=== PATIENT | female | born 1990 | race Hispanic/Latino ===

== ENCOUNTER 2017-05-25 17:19 | Emergency (ER) | payer SELFPAY ==
[2017-05-25 17:58] LABS: #Eosinphils 0.1 thou/uL (0.0-0.7); #Lymphocytes 1.5 thou/uL (1.20-3.40); #Monocytes 0.6 thou/uL (0.11-0.59); #Neutrophils 5.9 thou/uL (1.40-6.50); %Basophils 0.4 % (0.0-1.0); %Eosinophils 0.9 % (0.0-10.0); %Lymphocytes 18.8 % (21.0-51.0); %Monocytes 7.4 % (0.0-10.0); Mean Platelet Volume 9.2 fL (7.4-10.4); White Blood Cell (WBC) Count 8.1 thou/uL (4.8-10.8)
[2017-05-25 18:14] LABS: ALT (SGPT) 72 U/L (8-55); AST (SGOT) 32 U/L (5-34); Alkaline Phosphatase 80 U/L (40-150); Anion Gap 12 mmol/L (10-20); BUN (Urea Nitrogen) 5 mg/dL (7.0-18.7); Bilirubin, Total 0.4 mg/dL (0.2-1.2); Calc. Creatinine Clearance 0 mL/min (70-130); Calcium 8.6 mg/dL (7.8-10.44); Carbon Dioxide 21 mmol/L (22-29); Chloride 108 mmol/L (98-107); Estimated GFR-MDRD Greater than 90; Globulin 3.7 g/dL (2.4-3.5); Lipase 11 U/L (8-78); Protein, Total 7.6 g/dL (6.0-8.3)
[2017-05-25 19:04] LABS: Bilirubin Negative (Negative); Blood, Urine Large (Negative); Glucose, Urine (Dipstick) Negative (Negative); Ketone, Urine Negative (Negative); Nitrite Negative (Negative); Protein, Urine (Dipstick) 30 mg/dL (Neg-Trace); Urobilinogen 0.2 mg/dL (0.2-1.0)
[2017-05-25 19:06] LABS: Bacteria/HPF 4+ HPF (None Seen)
[2017-05-25 19:15] LABS: Hyaline Casts/LPF 0-3 HYALINE CAST LPF (0-3 Hyaline); Yeast-All Forms None Seen HPF (None Seen)
== END 2017-05-25 19:55 | disposition home or self-care (01) ==
LOC: ERS 17:19
DX: N39.0 Urinary tract infection, site not specified (principal); F41.9 Anxiety disorder, unspecified; F32.9 Major depressive disorder, single episode, unspecified; F17.210 Nicotine dependence, cigarettes, uncomplicated
CPT/HCPCS: 36415; 80053; 81003; 81015; 81025; 83690; 85025; 99284

== ENCOUNTER 2018-11-30 13:59 | Emergency (ER) | payer SELFPAY ==
[2018-11-30] MEDS ORDERED: Dexamethasone 4 mg/ml Vial ONE (16:54)
== END 2018-11-30 17:06 | disposition home or self-care (01) ==
LOC: ERS 13:59
DX: J30.2 Other seasonal allergic rhinitis (principal); F17.210 Nicotine dependence, cigarettes, uncomplicated
CPT/HCPCS: 99283; J1100

== ENCOUNTER 2019-03-14 15:39 | Emergency (ER) | payer SELFPAY ==
[~2019-03-14 15:39] MED LIST: ISOVUE-370 76%-LOCM 1 ML ONE
[2019-03-14 16:52] LABS: Hemoglobin 13.6 g/dL (12.0-16.0); Mean Corpuscular HGB CONC 33.6 g/dL (32.0-36.0); Mean Corpuscular Hemoglobin 29.7 pg (27.0-31.0); Mean Corpuscular Volume 88.2 fL (78.0-98.0); Mean Platelet Volume 10.7 fL (7.4-10.4); Platelet Count 194 thou/uL (130-400); RBC Distribution Width 11.9 % (11.5-14.5); White Blood Cell (WBC) Count 9.6 thou/uL (4.8-10.8)
[2019-03-14 17:14] LABS: ALT (SGPT) 31 U/L (8-55); AST (SGOT) 13 U/L (5-34); Albumin 4.3 g/dL (3.5-5.0); Alkaline Phosphatase 70 U/L (40-150); Anion Gap 9 mmol/L (10-20); BUN (Urea Nitrogen) 5 mg/dL (7.0-18.7); Bilirubin, Total 0.7 mg/dL (0.2-1.2); Calc. Creatinine Clearance 0 mL/min (70-130); Calcium 9.2 mg/dL (7.8-10.44); Carbon Dioxide 26 mmol/L (22-29); Chloride 101 mmol/L (98-107); Estimated GFR-MDRD Greater than 90; Globulin 3.9 g/dL (2.4-3.5); Glucose 98 mg/dL (70-105); Lipase 14 U/L (8-78); Protein, Total 8.2 g/dL (6.0-8.3); Sodium 133 mmol/L (136-145)
[2019-03-14 17:19] LABS: Bacteria/HPF 4+ HPF (None Seen); Bilirubin Negative (Negative); Blood, Urine 1+ (Negative); Clarity Turbid (Clear); Glucose, Urine (Dipstick) Normal (Negative); Leukocyte 500 Leu/uL (Negative); Nitrite 2+ (Negative); Protein, Urine (Dipstick) 70 mg/dL (Neg-Trace); Urobilinogen 3 mg/dL (Less than 2); WBC/HPF Greater than 50 HPF (0-3)
[2019-03-14 17:20] LABS: Potassium 2.9 mmol/L (3.5-5.1)
[2019-03-14 17:23] LABS: Pregnancy Test - Urine (BHCG) Negative (Negative); Pregu Control Background? CLEAR/WHITE (CLR/WHITE); Pregu Control Bar Appear? YES (CONTROL BAR); Specific Gravity 1.021 (1.002-1.036)
[2019-03-14 17:23] LABS: Band 21 % (5-11); Lymphocytes 11 % (21-51); MDiff Complete? YES; Monocytes 19 % (0-10); Neutrophil 49 % (42-75); Platelet Morphology Comment Appears Adequate; Polychromasia SLIGHT = 2-3 cells (100X) (0-2/hpf)
[2019-03-14] MEDS ORDERED: Metoclopramide HCl 10 MG/2 ML VIAL ONE (18:11)
[2019-03-14] MEDS ORDERED: diphenhydrAMINE 50 MG/ML VIAL ONE (18:11)
[2019-03-14] MEDS ORDERED: Pantoprazole 40 MG VIAL ONE (18:54)
--- NOTE | 2019-03-14 19:14 | CT ---
CT OF THE ABDOMEN AND PELVIS WITH IV CONTRAST INDICATION: Right-sided abdominal pain COMPARISON: None FINDINGS: ABDOMEN: Lung bases: Clear Liver: Fatty infiltration Gallbladder: Surgically absent Pancreas: Normal. Adrenal glands: Normal. Spleen: Normal. Kidneys: There is enlargement of the right kidney with perinephric stranding. No hydronephrosis is ev ident. The left kidney is normal-appearing. Retroperitoneum of the upper abdomen: No lymphadenopathy or free fluid is identified. Pelvis: Small and large bowel: There is a normal appendix in the right lower quadrant. The unopacified large and small bowel are unremarkable within limitations of this exam. Bladder: Partially decompressed Rectal and perirectal soft tissues:Normal. Reproductive structures: Normal. Free fluid in pelvis: Minimal Lymphadenopathy pelvis: No lymphadenopathy is evident. Osseous structures: No acute osseous abnormality. No destructive osteolytic or osteoblastic lesion i s identified. IMPRESSION: 1. Enlargement with perinephric inflammatory stranding involving the right kidney suspicious for pyel onephritis. This also can be seen following passage of a renal stone. This is felt to be less likely. There is no hydronephrosis. 2. Fatty liver 3. Cholecystectomy
[2019-03-14] MEDS ORDERED: Ketorolac Tromethamine 30 MG/ML VIAL ONE (19:49)
[2019-03-14] MEDS ORDERED: Ciprofloxacin 500 MG TAB ONE (19:49)
== END 2019-03-14 20:02 | disposition home or self-care (01) ==
LOC: ERS 15:39
DX: N12 Tubulo-interstitial nephritis, not specified as acute or chronic (principal); F41.9 Anxiety disorder, unspecified; F31.9 Bipolar disorder, unspecified; F17.210 Nicotine dependence, cigarettes, uncomplicated
CPT/HCPCS: 36415; 74177; 80053; 81003; 81015; 81025; 83690; 85025; 94760; 96361; 96372; 96374; 96375; C9113; J0500; J1200; J1885; J2765; Q9966

== ENCOUNTER 2019-07-07 12:22 | Emergency (ER) | payer SELFPAY ==
[2019-07-07 14:11] LABS: Pregnancy Test - Urine (BHCG) Negative (Negative); Pregu Control Background? CLEAR/WHITE (CLR/WHITE); Pregu Control Bar Appear? YES (CONTROL BAR); Specific Gravity 1.035 (1.002-1.036)
[2019-07-07 14:19] LABS: Bacteria/HPF 4+ HPF (None Seen); Bilirubin Negative (Negative); Blood, Urine 3+ (Negative); Clarity Turbid (Clear); Glucose, Urine (Dipstick) Normal (Negative); Leukocyte 250 Leu/uL (Negative); Nitrite 2+ (Negative); Protein, Urine (Dipstick) 30 mg/dL (Neg-Trace); RBC/HPF Greater than 50 HPF (0-3); Urobilinogen Normal mg/dL (Less than 2); WBC/HPF Greater than 50 HPF (0-3)
== END 2019-07-07 14:40 | disposition home or self-care (01) ==
LOC: ERS 12:22
DX: N39.0 Urinary tract infection, site not specified (principal); F17.210 Nicotine dependence, cigarettes, uncomplicated; F41.9 Anxiety disorder, unspecified; F32.9 Major depressive disorder, single episode, unspecified
CPT/HCPCS: 36415; 81003; 81015; 81025; 84702; 87077; 87086; 87186; 99284

== ENCOUNTER 2020-04-09 09:23 | Emergency (ER) | payer OTHER, SELFPAY ==
[2020-04-09 10:13] LABS: #Eosinphils 0.1 thou/uL (0.0-0.7); #Lymphocytes 1.3 thou/uL (1.20-3.40); #Monocytes 0.5 thou/uL (0.11-0.59); #Neutrophils 5.3 thou/uL (1.40-6.50); %Basophils 0.5 % (0.0-1.0); %Monocytes 7.2 % (0.0-10.0); %Neutrophils 72.4 % (42.0-75.0); Hemoglobin 12.4 g/dL (12.0-16.0); Mean Corpuscular HGB CONC 31.6 g/dL (32.0-36.0); Mean Corpuscular Volume 88.6 fL (78.0-98.0); Mean Platelet Volume 10.5 fL (7.4-10.4); Platelet Count 232 thou/uL (130-400); RBC Distribution Width 11.5 % (11.5-14.5); Red Blood Cell (RBC) Count 4.43 mill/uL (4.20-5.40); White Blood Cell (WBC) Count 7.3 thou/uL (4.8-10.8)
== END 2020-04-09 11:33 | disposition home or self-care (01) ==
LOC: ERS 09:23
DX: O20.0 Threatened abortion (principal); F41.9 Anxiety disorder, unspecified; F32.9 Major depressive disorder, single episode, unspecified; Z87.891 Personal history of nicotine dependence; Z3A.12 12 weeks gestation of pregnancy
CPT/HCPCS: 36415; 84702; 85025; 86900; 86901

== ENCOUNTER 2020-04-30 13:08 | Emergency (ER) | payer OTHER ==
[2020-04-30 14:47] LABS: Bacteria/HPF None Seen HPF (None Seen); Bilirubin Negative (Negative); Blood, Urine Negative (Negative); Clarity Clear (Clear); Glucose, Urine (Dipstick) Normal (Negative); Ketone, Urine Negative (Negative); Leukocyte Negative Leu/uL (Negative); Mucous/LPF 1+ LPF (<2+); Nitrite Negative (Negative); Protein, Urine (Dipstick) 10 mg/dL (Neg-Trace); RBC/HPF 0-3 HPF (0-3); Specific Gravity, Urine 1.021 (1.002-1.036); Squamous Epithelial 0-3 HPF (0-3); Urobilinogen Normal mg/dL (Less than 2); WBC/HPF 0-3 HPF (0-3); pH, Urine 6.5 (5.0-9.0)
[2020-05-01 16:22] LABS: SARS-CoV-2 MS2 Positive; SARS-CoV-2 N Gene Negative; SARS-CoV-2 S Gene Negative; SARS-CoV-2 by NAA Not Detected (NotDetected); SARS-CoV-2 orf1ab Negative
== END 2020-04-30 15:10 | disposition home or self-care (01) ==
LOC: ERS 13:08
DX: R50.9 Fever, unspecified (principal); R11.10 Vomiting, unspecified; Z20.828 Contact with and (suspected) exposure to other viral communicable diseases; F41.9 Anxiety disorder, unspecified; F32.9 Major depressive disorder, single episode, unspecified; Z87.891 Personal history of nicotine dependence
CPT/HCPCS: 81001; 87635; U0003

== ENCOUNTER 2020-06-12 15:08 | Outpatient (CLI) | payer OTHER ==
--- NOTE | 2020-06-12 16:08 | ULT ---
Obstetric sonogram HISTORY: evaluation. Second trimester gestation. FINDINGS: Single intrauterine gestation in cephalic presentation. Cervix is closed and 4.2 cm. Grade 0 placenta is anterior. No evidence of previa or abruption. Three-vessel cord shows a normal insertion. Amniotic fluid is within normal limits. spine and k idneys are intact as visualized. No gross intracranial abnormalities are apparent. Four-chamber heart motion at 158 bpm. Maternal ovaries not well visualized. Measurements are as follows: Biparietal diameter 21 weeks 2 days Head circumference 21 weeks 2 days Abdominal circumference 22 weeks 4 days Femur length 22 weeks 4 days [place] 91 percentile. Estimated date of delivery 10/16/2020. IMPRESSION : Single intrauterine gestation. Estimated gestational age 22 weeks 0 days.
== END 2020-06-12 15:09 | disposition home or self-care (01) ==
LOC: BICULT 15:08
PROVIDERS: ATTEND Family Medicine
DX: O09.892 Supervision of other high risk pregnancies, second trimester (principal); Z3A.22 22 weeks gestation of pregnancy
CPT/HCPCS: 76805

== ENCOUNTER 2020-08-10 00:29 | Day surgery (SDC) | payer OTHER ==
[2020-08-10] MEDS ORDERED: hydrALAZINE 20 MG/ML VIAL SLOW IVP PRN (01:25)
[2020-08-10 01:30] VITALS: BMI 34.7
[2020-08-10] MEDS ORDERED: Promethazine HCl 25 MG/ML VIAL IM SCH (01:45)
[2020-08-10] MEDS ORDERED: Morphine 10 MG/ML VIAL IM SCH ×2 (01:45→01:53)
[2020-08-10] MEDS ORDERED: Morphine 10 MG/ML VIAL ONE (01:56)
[2020-08-10] MEDS ORDERED: Morphine 4 MG/ML VIAL SLOW IVP SCH (02:00)
[2020-08-10 02:01] LABS: #Lymphocytes 1.6 thou/uL (1.20-3.40); #Monocytes 0.9 thou/uL (0.11-0.59); %Basophils 0.2 % (0.0-1.0); %Eosinophils 0.4 % (0.0-10.0); %Lymphocytes 12.7 % (21.0-51.0); %Monocytes 6.8 % (0.0-10.0); %Neutrophils 79.9 % (42.0-75.0); Hemoglobin 12.2 g/dL (12.0-16.0); Mean Corpuscular HGB CONC 33.2 g/dL (32.0-36.0); Mean Corpuscular Volume 84.2 fL (78.0-98.0); Mean Platelet Volume 10.3 fL (7.4-10.4); Platelet Count 245 thou/uL (130-400); RBC Distribution Width 12.5 % (11.5-14.5); Red Blood Cell (RBC) Count 4.35 mill/uL (4.20-5.40); White Blood Cell (WBC) Count 12.5 thou/uL (4.8-10.8)
[2020-08-10 02:08] LABS: INR-International Normal Ratio 0.9; PTT 27.3 sec (22.9-36.1); Prothrombin Time 12.6 sec (12.0-14.7)
[2020-08-10] MEDS: Lactated Ringer's 1,000 ML IV SCH ×2 (02:15→03:21)
--- NOTE | 2020-08-10 03:02 | PRG ---
DATE OF SERVICE: 08/10/2020 PRIMARY OB: Dr. Star Underwood CHIEF COMPLAINT: Abdominal pain. HISTORY OF PRESENT ILLNESS: The patient is a 30-year-old female, G2, P2, with intrauterine at 29 weeks and 5 days. The patient reports that around midnight an hour and a half or so before presentation, the patient began having severe vaginal pain. She reports that she was having that pain earlier in the evening and in the day, for which she took Midol to resolve the pain successfully, but reports that the pain came back quite severely after midnight. She reports that her work entailed walking and movement, and up on her feet a lot. The patient was difficult to get a history given the patient's affect and level of subjective pain. She reports that the pain is most severe with activity and movement. She feels it in her back and then in her side. She reports the pain is sharp and stabbing. She denies fever, cough, headache, chest pain, shortness of breath. She has had no nausea and vomiting until presentation here. She has had one episode of vomiting here in Labor and Delivery, and has retched a second time with a little vomit. The patient denies diarrhea or constipation. She denies hip problems, knee problems, muscle weakness. She denies vaginal bleeding or change in discharge. She denies urinary urgency or frequency. PAST MEDICAL HISTORY: Significant for anxiety and depression. PAST SURGICAL HISTORY: She has had one prior and gallbladder removal. ALLERGIES: NO KNOWN DRUG ALLERGIES. MEDICATIONS: vitamins. SOCIAL HISTORY: Denies drug, alcohol, or tobacco use. OB LABS: Unavailable at time of dictation. REVIEW OF SYSTEMS: Per HPI. PHYSICAL EXAMINATION: VITAL SIGNS: Blood pressure 132/79, heart rate of 94, respiratory rate 18. GENERAL: The patient appears to be in quite a bit of distress, disproportionate to her history and exam. She is able to follow commands and answer questions, but then has periods where she is tearful, crying, and showing little self-control. ABDOMEN: She has quite a bit of tenderness with deviation of her uterus to the right in the left lower quadrant, very little to no tenderness on the right side or fundal with deviation to the patient's left. Later in the exam, the patient reported she had tenderness with fundal pressure again with exhibiting quite a bit of subjective pain and tearful. However, the abdomen is soft, fundus is soft, uterus is soft. Perineum; it appears to be moist. A speculum was placed. Vagina appeared to be moist without any significant discharge. Upon visualization of a closed cervix, the edge of the cervix began to bleed. fibronectin was unattainable because the amount of blood was present. However, on digital exam, cervix is closed and thick. The patient reports sharp, reproducible pain with exam. heart tracing shows the fetus with a baseline in the 140s with moderate long-term variability, difficult to assess the strip well. At this point in time, we will continue to watch. The strip is having positive 15 x 15 accelerations with some possible decelerations, unable to characterize at this time. Tocometer showing irritability with occasional contractions, again difficult to assess well given the amount of movement that the patient is having. I have a drug screen, CBC, fibrinogen, PT, INR pending, and type and Rh. I have also ordered an ultrasound to evaluate fetus and any visible abnormalities, such as a large concealed abruption. The patient is receiving 10 mg of morphine IM and 25 of Phenergan and when she is under better control of her discomfort, we will be able to reassess at that time. The patient does not appear to have any signs of imminent delivery or active labor. Fetus has a category 1 tracing at the moment. addendum 08/10/20 0656 Pt was given ivf lr 2liters with the phenergan and morphine. Pain improved. Given the intensity of the pain pt requested a longer stay to make sure it did not return. US had no findings consistent with concealed abruption. fetus vtx plancental anterior and lateral to pt left inr 0.9. PT 12.6, PTT27.3, Fibrinogen 504, WC 12.5, Platelets 245,000, Hbg 12.2, Hct 36.6 Blood type o+ Pt slept for several hours and on reevaluation reports that she is feeling much better. Will discharge home with f/u with Dr Underwood. fetus with cat 1 tracing and Reactive NST Job ID: [id number] [facility]
[2020-08-10 04:06] LABS: Amphetamine Not Detected (NotDetected); Barbiturates Screen Not Detected (NotDetected); Benzodiazepine Screen Not Detected (NotDetected); Cocaine Metabolite Screen Not Detected (NotDetected); Medtox Control Line Valid? VALID (VALID); Medtox Reader # READER 1; Methadone Not Detected (NotDetected); Methamphetamine Not Detected (NotDetected); Opiate Screen Detected (NotDetected); Oxycodone Screen Not Detected (NotDetected); Phencyclidine (PCP) Not Detected (NotDetected); THC/Cannabinoid Screen Not Detected (NotDetected); Tricyclic Screen Not Detected (NotDetected)
--- NOTE | 2020-08-10 08:03 | ULT ---
Exam: Limited OB ultrasound HISTORY: Abdominal pain with nausea and vomiting. COMPARISON: None. FINDINGS: position: Vertex Placenta: Anterior Lower uterine segment: Cannot be assessed due to shadowing. Cervical length cannot be determined heart tones: 152 bpm biometry: BPD 7.18 cm, 28 weeks 6 days Head circumference 26.14 cm, 28 weeks 3 days Abdominal circumference 25.35 cm, 29 weeks 4 days Femur length 5.92 cm, 30 weeks 6 days Average age by sonography is 29 weeks 3 days Estimated weight is 1457 g +/- 216 g Amniotic fluid index is 13.4 cm IMPRESSION: 1. Single intrauterine gestation with heart tones. position is vertex. 2. Shadowing limits evaluation of the lower uterine segment. 3. Average age by sonography is 29 weeks 3 days. Estimated weight is 1457 g. Transcribed Date/Time: 08/10/2020 9:05 AM
== END 2020-08-10 07:02 | disposition home or self-care (01) ==
LOC: L&D/OP 00:29
PROVIDERS: ATTEND Family Medicine
DX: O99.891 Other specified diseases and conditions complicating pregnancy (principal); R10.2 Pelvic and perineal pain; O21.2 Late vomiting of pregnancy; O99.343 Other mental disorders complicating pregnancy, third trimester; F41.9 Anxiety disorder, unspecified; F32.9 Major depressive disorder, single episode, unspecified; O34.219 Maternal care for unspecified type scar from previous cesarean delivery; Z3A.29 29 weeks gestation of pregnancy
CPT/HCPCS: 36415; 76815; 80306; 85025; 85384; 85610; 85730; 86900; 86901; J2270; J2550

== ENCOUNTER 2020-08-12 09:25 | Day surgery (SDC) | payer OTHER ==
[2020-08-12 09:56] VITALS: BP 127/79; TEMP 98.3; BMI 34.7
[2020-08-12] MEDS ORDERED: hydrALAZINE 20 MG/ML VIAL SLOW IVP PRN (10:13)
--- NOTE | 2020-08-12 10:16 | PDOC.LDHP ---
Labor and Delivery H&P Chief complaint: abdominal pain HPI: Ms. Almaraz is a 30 yo female at 30 weeks EGA by LMP who presents to L&D for 48 hours of intermittent left flank and abdominal pain. States that she woke up at 0400 this morning with intermittent 10/10 pain beginning in her left flank and moving across her LLQ into the middle of her abdomen. Pain is worsened by moving and waxes and wanes in intensity. Her pain has resolved at this time. She reports associated vomiting secondary to pain which the patient states causes her to leak fluid. She is unsure if this is urine or amniotic fluid. She denies any fever, chills, dysuria, hematuria, diarrhea or constipation. She denies any vaginal bleeding or discharge and reports normal movement. She presented for similar complaints two days ago and received a normal ultrasound. UDS was negative at the time and the patient was sent home with a diagnosis of round ligament pain. She has received care with Dr. Underwood. Reports chlamydia infection during first trimester which was treated. She denies unprotected sexual activity since that time. Current gestational age (weeks): 30 Due date: 10/21/20 Dating criteria: last menstrual period OB History Details: - Previous was twins delivered prematurely via . Mother reports no abnormalities with this . Current complications: other (Chlamydia infection first Trimester. Treated with no unprotected sexual intercourse since that time.) Abnormal US findings: No Past Medical History: None Current medications: pre- vitamins Previous surgical history: low tranverse CS, cholecystectomy (2012) Allergies/Adverse Reactions: Allergies Allergy/AdvReac Type Severity Reaction Status Date / Time No Known Allergies Allergy Verified 08/10/20 01:30 Social history: none - Physical Exam Vital signs reviewed and normal: yes General: NAD, resting Heart: RRR Lungs: CTAB Abdomen: other (Gravid uterus. No tenderness to palpation. No rebound tenderness. No CVA tenderness.) Extremeties: trace edema FHT: variability present (> 2 10x10 accels noted within 20 minute period; appropriately reactive for GA) [place] contractions every: none noted - OB Labs Urine drug screen: negative (on 08/10) - Plan -: Abdominal Pain in - Suspect round ligament pain due to unilateral pain without other symptoms and no sign of active labor. Advised patient to use Tylenol for pain control along with Zofran in the event of continued nausea and vomiting. Do not suspect renal colic due to lack of dysuria or hematuria and absent CVA tenderness. Will check UA to rule out nephrolithiasis or UTI. Do not suspect peritonitis due to lack of abdominal tenderness or fever. Will check cervical length and perform sterile speculum exam with Amnisure to rule out active labor/ROM. If Cervical length >2.5cm with closed os, no visible pooling and negative Amnisure will likely discharge patient home and instruct to follow up with Dr. Underwood. Will order VP3 and GC to evaluate for infection based on exam. SIUP at 30 weeks- NST normal for gestational age with 10x10 accelerations. FHR 140's. Advised patient to continue following with Dr. Underwood. Next appt 08/30.
--- NOTE | 2020-08-12 11:27 | HP ---
LOCATION: Labor and Delivery triage. This is the patient who was first assessed by Dr. Jannette Brown, who was our resident client integration manager. I have seen and evaluated the patient as well. This is a patient Dr. Underwood. EGA is 30 weeks and 0 days. CHIEF COMPLAINT: Lower back pain on the left, radiating to the front that is intermittent. The patient was seen here two days ago with similar symptoms. HISTORY OF PRESENT ILLNESS: A 30-year-old, G2, P0-1-0-2, whose last delivery was twins, delivered by , who is now at 30 weeks and 0 days by any EDC stated by her as October 21. She states she has lower back pain that comes and goes, but this time it began about 4:00 in the morning. It is kind of intermittent and associated sometimes with some nausea and vomiting and sometimes radiates to her left flank. She denies any vaginal bleeding, and she has good movement. She has no fevers, but she does state that when she does have some retching that she has some loss of fluid by the vaginal area and she is not sure if that is amniotic fluid through the vagina or urine. She denies any painful urination. She states that she was evaluated here 2 days ago and also had an ultrasound at that time. I did evaluate that ultrasound based on the EMR, which showed a single intrauterine that was vertex. Ultrasound composite gestational age was size equal to dates at 29 weeks and 3 days with an estimated weight of 1457. Amniotic fluid at that time was normal. Cervical length was not determined at that time. REVIEW OF SYSTEMS: GENERAL: No sick contacts. No fever. No chills. CARDIOVASCULAR: No chest pain. PULMONARY: No shortness of breath. EXTREMITIES: No unusual pain or swelling in the extremities. PAST MEDICAL HISTORY: Otherwise negative. MEDICATIONS: Include vitamins. ALLERGIES: NONE. SURGICAL HISTORY: Cholecystectomy and a in the past. SOCIAL HISTORY: Negative for alcohol, tobacco, or drug use. OB HISTORY: The patient has had a history of twins with the previous . She sees Dr. Underwood for care. PHYSICAL EXAMINATION: VITAL SIGNS: Blood pressure is 127/79, pulse 93, respirations 16 and unlabored, temperature is 98.3. GENERAL: She is in no acute distress and does not appear to be actively laboring. ABDOMEN: Soft and nontender and size consistent with dates. PELVIC: Currently deferred as the nurses are preparing for sterile spec exam by the on-call physician team. External monitors: External monitor was reviewed by me and the heart tones are reactive, even for gestational age. Accelerations are noted greater than 15 x 15, even though she is only 30 weeks. There is no evidence of contractions, although this may be limited by her BMI which is 34. INTERVENTIONS ORDERED: 1. I have ordered a transvaginal ultrasound for cervical length. I have ordered a cath UA to rule out hematuria to rule out possible renal colic. 2. I have ordered a sterile spec exam and AmniSure for the complaint of leakage, although I suspect that the history is more compatible with urine loss due to Valsalva. ASSESSMENT: This is a 30-year-old, G2, P0-1-0-2, who is at 30 weeks, history of a , with nonspecific lower back pain that radiates to the front, possible musculoskeletal. No evidence of labor at this time. 1. Rule out labor. We will do a transvaginal ultrasound for cervical length. 2. Low back pain that radiates to the front, could be renal colic, so I have ordered a cath UA. If significant hematuria is present, we will consider a renal ultrasound. 3. Evaluation for ruptured membranes: Due to her complaint of possible leakage of fluid, I have ordered a sterile spec exam and AmniSure. Job ID: [id number]
[2020-08-12 11:32] LABS: Bacteria/HPF None Seen HPF (None Seen); Bilirubin Negative (Negative); Blood, Urine 2+ (Negative); Clarity Clear (Clear); Glucose, Urine (Dipstick) Normal (Negative); Ketone, Urine Negative (Negative); Leukocyte Negative Leu/uL (Negative); Nitrite Negative (Negative); Protein, Urine (Dipstick) Negative (Neg-Trace); Specific Gravity, Urine 1.007 (1.002-1.036); Squamous Epithelial 0-3 HPF (0-3); Urobilinogen Normal mg/dL (Less than 2); WBC/HPF 0-3 HPF (0-3)
[2020-08-12 11:34] LABS: Urine Culture Reflex No No
--- NOTE | 2020-08-12 11:55 | PDOC.BPN ---
- Brief Progress Note SSE by Dr Brown was neg pending to confirm VP3 sent for white dsch TVUS was 4cm with me in room.
[2020-08-12 12:03] LABS: Amnisure Test No Membranes Rupture (No Rupture)
[2020-08-12 12:04] LABS: Amnisure Internal Control QC ACCEPTABLE (ACCEPTABLE)
--- NOTE | 2020-08-12 12:06 | ULT ---
US OB Ltd History: Assess cervical length Comparison: Pelvic ultrasound 2 days prior Findings: Real-time grayscale and color evaluation of the cervix was performed transvaginal approach. Cervix is closed measuring 4.9 cm in length. Impression: Closed cervix measuring up to 4.9 cm in length.
--- NOTE | 2020-08-12 12:51 | PDOC.BPN ---
- Brief Progress Note Encounter Date: 08/12/20 Encounter Time: 12:20 30 year old female who is at 30 weeks and presented to L&D with intermittent left sided abdominal pain present for 48 hours. Abdominal Pain w/ N/V in - Patient's pain and vomiting have resolved. Sterile speculum exam revealed normal appearing, closed cervix without blood or visible membranes. No pooling of fluid or increased fluid with valsalva. Performed Amnisure swab which was negative. Cervical length of 4.5 cm on TVUS & no contractions noted on monitor since patient's arrival. The summation of these findings rules out active labor and ROM. Small amount of white vaginal discharge present. Swabbed for VP3 which resulted positive for Bacterial Vaginosis. Prescribed outpatient Metronidazole 500mg BID for 7 days. GC results pending. Will call with any positive results and have patient follow with PCP, Dr. Underwood. Cath UA showed small amount (3-5) RBC's which can be attributed to traumatic catheterization. Not sufficient to indicate nephrolithiasis. Otherwise normal UA with no sign of infection. Most likely etiology of pain is MSK/round ligament pain. Counseled on taking tylenol 1g Q8H regularly at home, belly band for pelvic support & heating pad/warm baths PRN for pain control. Dispo: Will discharge home with diagnosis of round ligament pain & BV w/ counseling as noted above. Instructed to follow-up with Dr. Underwood, PCP, for routine scheduled appts.
[2020-08-14 21:19] LABS: Chlamydia by PCR Not Detected (NotDetected); GC by PCR Not Detected (NotDetected)
== END 2020-08-12 12:50 | disposition home or self-care (01) ==
LOC: L&D/OP 09:25
PROVIDERS: ATTEND Family Medicine
DX: O99.891 Other specified diseases and conditions complicating pregnancy (principal); M54.5 Low back pain; R10.32 Left lower quadrant pain; N89.8 Other specified noninflammatory disorders of vagina; O21.2 Late vomiting of pregnancy; O34.211 Maternal care for low transverse scar from previous cesarean delivery; Z3A.30 30 weeks gestation of pregnancy; Z86.19 Personal history of other infectious and parasitic diseases
CPT/HCPCS: 76815; 81001; 84112; 87480; 87491; 87510; 87591; 87660

== ENCOUNTER 2021-03-26 | Emergency (ER) | payer OTHER | END 2021-03-26 17:12 | disposition home or self-care (01) ==

== ENCOUNTER 2021-04-19 14:29 | Emergency (ER) | payer OTHER ==
[2021-04-20 12:39] LABS: SARS-CoV-2 PCR by NAA DETECTED (NotDetected)
== END 2021-04-19 15:25 | disposition home or self-care (01) ==
LOC: ERS 14:29
DX: U07.1 COVID-19 (principal)
CPT/HCPCS: 99283; U0003; U0005

== ENCOUNTER 2022-03-04 09:14 | Outpatient (CLI) | payer OTHER | END 2022-03-04 09:15 | disposition home or self-care (01) | LOC: BICULT 09:14 | PROVIDERS: ATTEND Family Medicine | DX: O44.42 Low lying placenta NOS or without hemorrhage, second trimester (principal); Z3A.20 20 weeks gestation of pregnancy | CPT/HCPCS: 76805 ==

== ENCOUNTER 2023-03-27 12:23 | Emergency (ER) | payer OTHER ==
[2023-03-27] MEDS ORDERED: Ondansetron PF 4 MG/2 ML Vial ONE (13:02)
[2023-03-27] MEDS ORDERED: Ketorolac Tromethamine 30 MG/ML VIAL ONE (13:02)
[2023-03-27 13:35] LABS: #Eosinphils 0.2 thou/uL (0.0-0.7); #Monocytes 0.5 thou/uL (0.11-0.59); %Basophils 0.3 % (0.0-1.0); %Eosinophils 2.9 % (0.0-10.0); %Lymphocytes 24.4 % (21.0-51.0); %Monocytes 8.3 % (0.0-10.0); %Neutrophils 63.8 % (42.0-75.0); Hematocrit 37.4 % (36.0-47.0); Hemoglobin 11.9 g/dL (12.0-16.0); Mean Corpuscular HGB CONC 31.8 g/dL (32.0-36.0); Mean Corpuscular Hemoglobin 26.8 pg (27.0-31.0); Mean Corpuscular Volume 84.2 fl (78.0-98.0); Mean Platelet Volume 12.2 fL (7.4-10.4); Platelet Count 269 10x3/uL (130-400); RBC Distribution Width 14.1 % (11.5-14.5); Red Blood Cell (RBC) Count 4.44 mill/uL (4.20-5.40); White Blood Cell (WBC) Count 6.2 10x3/uL (4.8-10.8)
[2023-03-27 13:50] LABS: BHCG - Serum Negative (NEGATIVE); Pregs Control Background? CLEAR/WHITE (CLR/WHITE); Pregs Control Bar Appear? YES (CONTROL BAR)
[2023-03-27 14:02] LABS: Troponin I Less than 0.010 ng/mL (< 0.028)
[2023-03-27 14:07] LABS: ALT (SGPT) 22 U/L (8-55); AST (SGOT) 16 U/L (5-34); Albumin 3.9 g/dL (3.5-5.0); Alkaline Phosphatase 73 U/L (40-110); Anion Gap 14 mmol/L (10-20); BUN (Urea Nitrogen) 7 mg/dL (7.0-18.7); Bilirubin, Total 0.3 mg/dL (0.2-1.2); Calc. Creatinine Clearance 0 mL/min (70-130); Calcium 8.2 mg/dL (7.8-10.44); Carbon Dioxide 16 mmol/L (22-29); Chloride 111 mmol/L (98-107); Estimated GFR 122; Globulin 3.3 g/dL (2.4-3.5); Glucose 83 mg/dL (70-105); Lipase 26 U/L (8-78); Protein, Total 7.2 g/dL (6.0-8.3); Sodium 137 mmol/L (136-145)
[2023-03-27 14:09] LABS: Bacteria/HPF None Seen HPF (None Seen); Bilirubin Negative (Negative); Blood, Urine Negative (Negative); CAUTI Indications for Culture Dysuria,urgency,freq; Clarity Clear (Clear); Glucose, Urine (Dipstick) Normal (Negative); Ketone, Urine Negative (Negative); Leukocyte Negative Leu/uL (Negative); Nitrite Negative (Negative); Protein, Urine (Dipstick) Negative (Neg-Trace); RBC/HPF 0-3 HPF (0-3); Specific Gravity, Urine 1.031 (1.002-1.036); Urobilinogen Normal mg/dL (Less than 2); WBC/HPF 0-3 HPF (0-3); pH, Urine 5.5 (5.0-9.0)
[2023-03-27 14:11] LABS: Urine Culture Reflex No No
== END 2023-03-27 14:56 | disposition home or self-care (01) ==
LOC: ERS 12:23
DX: R10.9 Unspecified abdominal pain (principal)
CPT/HCPCS: 36415; 74176; 80053; 81001; 83690; 84484; 84703; 85025; 96374; 96375; J1885; J2405

== ENCOUNTER 2023-06-11 07:08 | Inpatient (IN) | payer OTHER, SELFPAY ==
[2023-06-11] MEDS ORDERED: Acetaminophen 500 MG TAB ONE (07:17)
[2023-06-11] MEDS ORDERED: Ketorolac Tromethamine 30 MG/ML VIAL ONE (07:46)
[2023-06-11 07:50] LABS: Hematocrit 33.7 % (36.0-47.0); Hemoglobin 11.4 g/dL (12.0-16.0); Mean Corpuscular HGB CONC 33.8 g/dL (32.0-36.0); Mean Corpuscular Hemoglobin 28.3 pg (27.0-31.0); Mean Corpuscular Volume 83.6 fl (78.0-98.0); Mean Platelet Volume 11.6 fL (7.4-10.4); Platelet Count 206 10x3/uL (130-400); RBC Distribution Width 13.2 % (11.5-14.5); Red Blood Cell (RBC) Count 4.03 mill/uL (4.20-5.40); White Blood Cell (WBC) Count 18.5 10x3/uL (4.8-10.8)
[2023-06-11 07:54] LABS: Delete Auto Diff?? YES; Manual Diff?? YES
[2023-06-11 08:03] LABS: Bacteria/HPF 4+ HPF (None Seen); Bilirubin Negative (Negative); Blood, Urine 1+ (Negative); CAUTI Indications for Culture Pelvic or flank pain; Clarity Turbid (Clear); Glucose, Urine (Dipstick) Normal (Negative); Ketone, Urine 40 mg/dL (Negative); Leukocyte 500 Leu/uL (Negative); Nitrite Negative (Negative); Pregnancy Test - Urine (BHCG) Negative (Negative); Pregu Control Background? CLEAR/WHITE (CLR/WHITE); Pregu Control Bar Appear? YES (CONTROL BAR); Protein, Urine (Dipstick) 100 mg/dL (Neg-Trace); Specific Gravity 1.022 (1.002-1.036); Specific Gravity, Urine 1.022 (1.002-1.036); WBC/HPF Greater than 50 HPF (0-3)
[2023-06-11 08:04] LABS: Urine Culture Reflex Yes Yes
[2023-06-11 08:13] LABS: SARS-CoV-2 NAA Rapid Test Not Detected (NotDetected)
[2023-06-11 08:14] LABS: ALT (SGPT) 19 U/L (8-55); AST (SGOT) 12 U/L (5-34); Albumin 4.1 g/dL (3.5-5.0); Alkaline Phosphatase 77 U/L (40-110); Anion Gap 14 mmol/L (10-20); BUN (Urea Nitrogen) 7 mg/dL (7.0-18.7); Bilirubin, Total 1.2 mg/dL (0.2-1.2); Calc. Creatinine Clearance 0 mL/min (70-130); Calcium 8.2 mg/dL (7.8-10.44); Carbon Dioxide 21 mmol/L (22-29); Chloride 101 mmol/L (98-107); Estimated GFR 105; Globulin 3.6 g/dL (2.4-3.5); Glucose 155 mg/dL (70-105); Protein, Total 7.7 g/dL (6.0-8.3); Sodium 133 mmol/L (136-145)
[2023-06-11 08:20] LABS: Band 21 % (5-11); CellaVision Operator ID LAB.GE; Lymphocytes 4 % (21-51); Monocytes 2 % (0-10); Neutrophil 72 % (42-75); Platelet Adequacy Comment Platelets Normal; Polychromasia SLIGHT = 2-3 cells HPF (0-2); Total Cell Count 99
[2023-06-11] MEDS ORDERED: Sodium Chloride 0.9% 100 ML ONE (08:20)
[2023-06-11] MEDS ORDERED: Piperacillin/Tazobactam 4.5 GM VIAL ONE (08:20)
[2023-06-11 08:21] LABS: Potassium 2.6 mmol/L (3.5-5.1)
[2023-06-11] MEDS ORDERED: Magnesium 2 GM/50 ML BAG (IN WATER) ONE (08:57)
[2023-06-11] MEDS ORDERED: Potassium Chloride 20 MEQ TAB ONE (08:58)
[2023-06-11] MEDS ORDERED: Iopamidol-370 76% 500 ML MDV (1 ML CHARGE) ONE (13:03)
[2023-06-11] MEDS ORDERED: Potassium Chloride 20 MEQ TAB PO SCH ×2 (14:00→18:15)
[2023-06-11] MEDS: cefTRIAXone\\ROCEPHIN 2 GM in Sodium Chloride 0.9% 100 ML IVPB SCH (14:45)
[2023-06-11 14:47] VITALS: BMI 32.7
[2023-06-11] MEDS: Sodium Chloride 0.9% 1,000 ML IV SCH ×3 (15:12→20:39)
[2023-06-11] MEDS ORDERED: FLU VACC QS2023-24(6MOS UP)/PF 60 MCG/0.5 ML SYRINGE IM ONE (15:45)
[2023-06-11] MEDS: traMADol HCl 50 MG TAB PO PRN (16:18)
[2023-06-11 17:12] LABS: Anion Gap 11 mmol/L (10-20); BUN (Urea Nitrogen) 7 mg/dL (7.0-18.7); Calc. Creatinine Clearance 147 mL/min (70-130); Calcium 8.5 mg/dL (7.8-10.44); Carbon Dioxide 23 mmol/L (22-29); Chloride 108 mmol/L (98-107); Estimated GFR 119; Glucose 96 mg/dL (70-105); Potassium 3.3 mmol/L (3.5-5.1); Sodium 139 mmol/L (136-145)
[2023-06-11] MEDS: Acetaminophen 325 MG TAB PO PRN (17:44)
[2023-06-12] MEDS: Ondansetron PF 4 MG/2 ML Vial IVP PRN (04:46)
[2023-06-12] MEDS: Sodium Chloride 0.9% 1,000 ML IV SCH ×4 (04:46→20:10)
[2023-06-12 05:38] LABS: #Monocytes 1.2 thou/uL (0.11-0.59); #Neutrophils 9.6 thou/uL (1.40-6.50); %Basophils 0.1 % (0.0-1.0); %Eosinophils 0.1 % (0.0-10.0); %Monocytes 10.1 % (0.0-10.0); %Neutrophils 83.4 % (42.0-75.0); Hematocrit 31.5 % (36.0-47.0); Hemoglobin 10.4 g/dL (12.0-16.0); Mean Corpuscular Hemoglobin 27.9 pg (27.0-31.0); Mean Corpuscular Volume 84.5 fl (78.0-98.0); Mean Platelet Volume 12.1 fL (7.4-10.4); Platelet Count 159 10x3/uL (130-400); RBC Distribution Width 13.2 % (11.5-14.5); Red Blood Cell (RBC) Count 3.73 mill/uL (4.20-5.40); White Blood Cell (WBC) Count 11.5 10x3/uL (4.8-10.8)
[2023-06-12 06:05] LABS: Anion Gap 13 mmol/L (10-20); BUN (Urea Nitrogen) 4 mg/dL (7.0-18.7); Calc. Creatinine Clearance 189 mL/min (70-130); Calcium 7.6 mg/dL (7.8-10.44); Carbon Dioxide 19 mmol/L (22-29); Chloride 107 mmol/L (98-107); Estimated GFR 126; Glucose 93 mg/dL (70-105); Potassium 3.5 mmol/L (3.5-5.1); Sodium 135 mmol/L (136-145)
[2023-06-12 07:30] LABS: Magnesium 1.9 mg/dL (1.6-2.6)
[2023-06-12] MEDS: Acetaminophen 325 MG TAB PO PRN ×3 (08:46→20:08)
[2023-06-12] MEDS: traMADol HCl 50 MG TAB PO PRN (08:47)
[2023-06-12] MEDS: cefTRIAXone\\ROCEPHIN 2 GM in Sodium Chloride 0.9% 100 ML IVPB SCH (08:47)
[2023-06-12] MEDS: Ketorolac Tromethamine 30 MG/ML VIAL IVP PRN ×2 (14:13→20:08)
[2023-06-13] MEDS: Ondansetron PF 4 MG/2 ML Vial IVP PRN (04:03)
[2023-06-13 06:06] LABS: #Eosinphils 0.1 thou/uL (0.0-0.7); #Monocytes 0.7 thou/uL (0.11-0.59); #Neutrophils 5.6 thou/uL (1.40-6.50); %Basophils 0.1 % (0.0-1.0); %Eosinophils 0.7 % (0.0-10.0); %Lymphocytes 10.2 % (21.0-51.0); %Monocytes 9.5 % (0.0-10.0); %Neutrophils 78.9 % (42.0-75.0); Hematocrit 30.4 % (36.0-47.0); Hemoglobin 9.9 g/dL (12.0-16.0); Mean Corpuscular HGB CONC 32.6 g/dL (32.0-36.0); Mean Corpuscular Hemoglobin 27.8 pg (27.0-31.0); Mean Corpuscular Volume 85.4 fl (78.0-98.0); Mean Platelet Volume 12.5 fL (7.4-10.4); Platelet Count 168 10x3/uL (130-400); RBC Distribution Width 13.4 % (11.5-14.5); Red Blood Cell (RBC) Count 3.56 mill/uL (4.20-5.40); White Blood Cell (WBC) Count 7.1 10x3/uL (4.8-10.8)
[2023-06-13 06:31] LABS: Anion Gap 10 mmol/L (10-20); BUN (Urea Nitrogen) 4 mg/dL (7.0-18.7); Calc. Creatinine Clearance 189 mL/min (70-130); Calcium 7.9 mg/dL (7.8-10.44); Carbon Dioxide 21 mmol/L (22-29); Chloride 109 mmol/L (98-107); Estimated GFR 126; Glucose 112 mg/dL (70-105); Potassium 3.4 mmol/L (3.5-5.1); Sodium 137 mmol/L (136-145)
[2023-06-13] MEDS: Sodium Chloride 0.9% 1,000 ML IV SCH ×2 (08:54→20:53)
[2023-06-13] MEDS: cefTRIAXone\\ROCEPHIN 2 GM in Sodium Chloride 0.9% 100 ML IVPB SCH (08:54)
[2023-06-13] MEDS: Acetaminophen 325 MG TAB PO PRN (11:32)
[2023-06-13] MEDS: Ketorolac Tromethamine 30 MG/ML VIAL IVP PRN (13:08)
[2023-06-13] MEDS: traMADol HCl 50 MG TAB PO PRN (13:09)
[2023-06-14] MEDS: Acetaminophen 325 MG TAB PO PRN (00:09)
[2023-06-14 04:55] VITALS: TEMP 97.8
[2023-06-14 06:05] LABS: #Eosinphils 0.1 thou/uL (0.0-0.7); #Monocytes 0.6 thou/uL (0.11-0.59); #Neutrophils 3.2 thou/uL (1.40-6.50); %Basophils 0.8 % (0.0-1.0); %Eosinophils 1.9 % (0.0-10.0); %Lymphocytes 25.7 % (21.0-51.0); %Neutrophils 59.2 % (42.0-75.0); Hematocrit 29.7 % (36.0-47.0); Hemoglobin 9.6 g/dL (12.0-16.0); Mean Corpuscular HGB CONC 32.3 g/dL (32.0-36.0); Mean Corpuscular Hemoglobin 27.4 pg (27.0-31.0); Mean Corpuscular Volume 84.6 fl (78.0-98.0); Mean Platelet Volume 12.3 fL (7.4-10.4); Platelet Count 214 10x3/uL (130-400); RBC Distribution Width 13.5 % (11.5-14.5); Red Blood Cell (RBC) Count 3.51 mill/uL (4.20-5.40); White Blood Cell (WBC) Count 5.3 10x3/uL (4.8-10.8)
[2023-06-14 06:30] LABS: Anion Gap 11 mmol/L (10-20); BUN (Urea Nitrogen) 5 mg/dL (7.0-18.7); Calc. Creatinine Clearance 200 mL/min (70-130); Carbon Dioxide 21 mmol/L (22-29); Chloride 110 mmol/L (98-107); Estimated GFR 128; Glucose 87 mg/dL (70-105); Potassium 3.4 mmol/L (3.5-5.1); Sodium 139 mmol/L (136-145)
[2023-06-14] MEDS: Sodium Chloride 0.9% 1,000 ML IV SCH (08:54)
[2023-06-14] MEDS: cefTRIAXone\\ROCEPHIN 2 GM in Sodium Chloride 0.9% 100 ML IVPB SCH (08:54)
[2023-06-14] MEDS: traMADol HCl 50 MG TAB PO PRN (08:57)
[2023-06-14] MEDS ORDERED: Potassium Chloride 20 MEQ TAB PO SCH (09:30)
[2023-06-14 17:32] VITALS: BP 113/75
== END 2023-06-14 18:50 | disposition home or self-care (01) | DRG 872 ==
LOC: ERS 07:08 → ERHOLD 08:59 → T4-B 14:36
PROVIDERS: ADMIT Internal Medicine; ATTEND Internal Medicine
DX: A41.51 Sepsis due to Escherichia coli [E. coli] (principal); N10 Acute pyelonephritis; F41.9 Anxiety disorder, unspecified; F32.A Depression, unspecified; E87.6 Hypokalemia; Z87.891 Personal history of nicotine dependence; Z90.49 Acquired absence of other specified parts of digestive tract; Z98.51 Tubal ligation status; Z11.52 Encounter for screening for COVID-19
CPT/HCPCS: 36415; 74177; 80048; 80053; 81001; 81025; 83605; 83735; 85025; 87040; 87077; 87086; 87149; 87186; 90471; 90686; 93005; 96361; 96365; 96368; 96375; G0008; J0696; J1650; J1885; J2405; J2543; J3475; J3490; J7050; Q9967

== ENCOUNTER 2024-05-11 16:42 | Emergency (ER) | payer BC ==
[2024-05-11] MEDS ORDERED: Ketorolac Tromethamine 30 MG (1 mL) VIAL ONE (17:53)
[2024-05-11 18:41] LABS: Bilirubin Negative (Negative); Blood, Urine 2+ (Negative); CAUTI Indications for Culture Pelvic or flank pain; Clarity Clear (Clear); Glucose, Urine (Dipstick) Normal (Negative); Ketone, Urine Negative (Negative); Leukocyte Negative Leu/uL (Negative); Nitrite Negative (Negative); Protein, Urine (Dipstick) 20 mg/dL (Neg-Trace); RBC/HPF 0-3 HPF (0-3); Specific Gravity, Urine 1.028 (1.002-1.036); Urobilinogen Normal mg/dL (Less than 2)
[2024-05-11 18:45] LABS: Pregnancy Test - Urine (BHCG) Negative (Negative); Pregu Control Background? CLEAR/WHITE (CLR/WHITE); Pregu Control Bar Appear? YES (CONTROL BAR); Specific Gravity 1.028 (1.002-1.036)
[2024-05-11 18:57] LABS: Bacteria/HPF 1+ HPF (None Seen)
[2024-05-11 18:58] LABS: Urine Culture Reflex No No
== END 2024-05-11 18:50 | disposition home or self-care (01) ==
LOC: ERS 16:42
DX: S39.012A Strain of muscle, fascia and tendon of lower back, initial encounter (principal); X50.1XXA Overexertion from prolonged static or awkward postures, initial encounter; Z87.891 Personal history of nicotine dependence
CPT/HCPCS: 81001; 81025; 96372; 99283; J1885

== ENCOUNTER 2025-06-08 17:18 | Emergency (ER) | payer BC, SELFPAY | END 2025-06-08 20:42 | disposition home or self-care (01) | LOC: ERS 17:18 | DX: J01.90 Acute sinusitis, unspecified (principal); R09.81 Nasal congestion; Z87.891 Personal history of nicotine dependence | CPT/HCPCS: 71045; 87081; 87428; 87430 ==